=== PATIENT | male | born 1985 | race Caucasian/White ===

== ENCOUNTER 2021-05-11 14:37 | Emergency (ER) | payer MEDICAID ==
[~2021-05-11] VITALS: Ht 177.8 cm; Wt 97.5 kg
[2021-05-11] MEDS ORDERED: HYDROmorphone 1 MG/ML, 1ML INJ IM PRN (15:00)
[2021-05-11] MEDS ORDERED: HYDROmorphone 1 MG/ML, 1ML INJ ONE (15:18)
[2021-05-11 18:04] VITALS: BP 134/75
== END 2021-05-11 18:06 | disposition home or self-care (01) ==
LOC: ED 17:45
DX: S02.31XA Fracture of orbital floor, right side, initial encounter for closed fracture (principal); S01.411A Laceration without foreign body of right cheek and temporomandibular area, initial encounter; W22.8XXA Striking against or struck by other objects, initial encounter; Y93.89 Activity, other specified; Y92.89 Other specified places as the place of occurrence of the external cause; Y99.8 Other external cause status
CPT/HCPCS: 70486; 96372; 99284; J1170